=== PATIENT | male | born 1990 | race Caucasian/White ===

== ENCOUNTER 2016-07-09 15:17 | Emergency (ER) | payer OTHER ==
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
[2016-07-09 16:17] LABS: % BASOPHILS 0.3 % (0.0-2.0); % EOSINOPHILS 2.1 % (0.0-5.0); % LYMPHOCYTES 19.4 % (20.0-50.0); % MONOCYTES 8.6 % (2.0-10.0); % NEUTROPHILS 69.6 % (40.0-80.0); HEMATOCRIT 44.3 % (39.0-49.0); HEMOGLOBIN 14.9 gm/dL (13.2-17.3); MEAN CELL VOLUME 91.4 fl (80-99); MEAN CORPUSCULAR HEMOGLOBIN 30.7 pg (26.0-30.0); MEAN CORPUSCULAR HGB CONC 33.6 pg (28.0-36.0); MEAN PLATELET VOLUME 7.2 fl; NEUTROPHILE ABSOLUTE 4.7 Th/cmm (1.8-8.0); PLATELET COUNT 218 Th/cmm (150-400); RED BLOOD COUNT 4.85 Mil/cmm (4.30-5.70); WHITE BLOOD COUNT 6.7 Th/cmm (4.8-10.8)
[2016-07-09 16:40] LABS: ALB/GLOB RATIO 1.5 (1.0-1.8); ALKALINE PHOSPHATASE 83 U/L (34-104); ANION GAP 7.8 (7.0-16.0); BILIRUBIN,TOTAL 0.5 mg/dL (0.3-1.0); BUN - UREA NITROGEN 18 mg/dL (7-25); CALCIUM SERUM 9.1 mg/dL (8.6-10.3); CARBON DIOXIDE 27.9 mEq/L (21.0-31.0); CHLORIDE 105 mEq/L (98-107); CREATININE - SERUM 0.9 mg/dL (0.7-1.3); GLUCOSE 90 mg/dL (70-105); POTASSIUM SERUM 3.7 mEq/L (3.5-5.1); SGOT 22 U/L (13-39); SGPT/ALT 32 U/L (7-52); SODIUM SERUM 137 mEq/L (136-145)
[2016-07-09 16:50] LABS: PROTHROMBIN TIME (TEST) 9.9 SECONDS (9.5-11.5)
[2016-07-09 17:13] LABS: URINE BILIRUBIN NEGATIVE (NEGATIVE); URINE BLOOD NEGATIVE (NEGATIVE); URINE COLOR YELLOW; URINE GLUCOSE (UA) NEGATIVE (NEGATIVE); URINE KETONE NEGATIVE (NEGATIVE); URINE PROTEIN NEGATIVE (NEGATIVE); URINE UROBILINOGEN 0.2 E.U./dL (0.2 - 1.0)
[2016-07-09 17:14] LABS: URINE BACTERIA NONE SEEN /hpf (NONE SEEN); URINE EPITHELIAL CELLS NONE SEEN /lpf (FEW); URINE RBC NONE SEEN /hpf (0-5); URINE WBC NONE SEEN /hpf (0-5)
[2016-07-09 17:47] LABS: AMPHETAMINE URINE NEGATIVE (NEGATIVE); BARBITURATES URINE NEGATIVE (NEGATIVE)
--- NOTE | 2016-07-10 11:20 | Diagnostic Imaging Report ---
CT scan of the brain without intravenous contrast HISTORY: Headache, trauma Prior exams are not available for comparison. The exam demonstrates a large craniotomy defect that extends about the entire left frontal parietal and temporal regions of the skull. Extra-axial membrane noted. No mass effect. No shift of midline structures. There is enlargement of the ventricular system and prominence of cerebral sulci consistent with a degree of atrophy. Findings consistent with encephalomalacia noted throughout the left temporal region of the brain. No acute parenchymal abnormalities. No intracerebral hemorrhage. IMPRESSION: 1. Findings consistent with extensive surgical changes 2. No definite acute abnormalities 3. Cerebral atrophy 4. Findings consistent with focal encephalomalacia within the left temporal region of the brain.
== END 2016-07-09 17:43 | disposition home or self-care (01) ==
LOC: ER 15:17
DX: S00.81XA Abrasion of other part of head, initial encounter (principal); Z91.030 Bee allergy status; W01.198A Fall on same level from slipping, tripping and stumbling with subsequent striking against other object, initial encounter; Y93.E1 Activity, personal bathing and showering; Y92.89 Other specified places as the place of occurrence of the external cause; Y99.8 Other external cause status
CPT/HCPCS: 36415-UA; 70450-TC; 80053-TC; 81001-TC; 85025-TC; 85610-TC; 93005